=== PATIENT | male | born 1965 | race Caucasian/White ===

== ENCOUNTER 2023-01-26 06:56 | Inpatient (IN) | payer MEDICARE, OTHER ==
[~2023-01-26] VITALS: Ht 177.8 cm; Wt 86.4 kg
[2023-01-26] MEDS ORDERED: TEMAZEPAM 7.5 MG CAPSULE PO PRN (09:30)
[2023-01-26] MEDS ORDERED: LORAZEPAM 0.5 MG TABLET PO PRN (09:30)
[2023-01-26] MEDS ORDERED: ACETAMINOPHEN 325 MG TABLET PO PRN (09:30)
[2023-01-26] MEDS ORDERED: MAGNESIUM HYDROXIDE 30 ML UDC PO PRN (09:30)
[2023-01-26] MEDS ORDERED: MAG HYDROX/AL HYDROX/SIMETH 30 ML UDC PO PRN (09:30)
[2023-01-26] MEDS ORDERED: BLOOD SUGAR DIAGNOSTIC 1 EACH STRIP IN ONE (09:30)
[2023-01-26] MEDS: clonazePAM 0.5 MG TABLET PO PRN (10:28)
[2023-01-26] MEDS ORDERED: HYDR10SY16 PO (11:03)
[2023-01-26] MEDS ORDERED: RISP1TAB97 PO (11:03)
[2023-01-26 16:00] VITALS: BP 105/66; TEMP 98.4; O2SAT 98
[2023-01-26 21:03] VITALS: BP 118/70; TEMP 98.4; O2SAT 96
[2023-01-26] MEDS: TEMAZEPAM 7.5 MG CAPSULE PO PRN (23:30)
[2023-01-27 08:00] VITALS: BP 107/76; TEMP 98.2; O2SAT 97
[2023-01-27 08:16] LABS: ALBUMIN 3.7 g/dL (3.4-5.0); BILIRUBIN,TOTAL 0.4 mg/dL (0.2-1.0); CALCIUM, SERUM 9.2 mg/dL (8.5-10.1); POTASSIUM 4.1 mmol/L (3.5-5.1); TOTAL PROTEIN, SERUM 7.2 g/dL (6.4-8.2)
[2023-01-27] MEDS: risperiDONE 1 MG TABLET PO SCH ×2 (11:40→17:03)
[2023-01-27 16:00] VITALS: BP 127/76; TEMP 97.7; O2SAT 98
[2023-01-27 19:49] VITALS: BP 108/55; TEMP 98.1; O2SAT 96
[2023-01-28] MEDS: risperiDONE 1 MG TABLET PO SCH ×2 (10:40→16:17)
[2023-01-28 16:00] VITALS: BP 133/79; TEMP 98.1; O2SAT 99
[2023-01-28 20:53] VITALS: BP 114/74; TEMP 98.2; O2SAT 98
[2023-01-28] MEDS: risperiDONE 0.25 MG TABLET PO SCH (21:35)
[2023-01-29] MEDS: TEMAZEPAM 7.5 MG CAPSULE PO PRN (00:22)
[2023-01-29 08:00] VITALS: BP 108/63; TEMP 97.8; O2SAT 96
[2023-01-29] MEDS: risperiDONE 1 MG TABLET PO SCH (08:20)
[2023-01-29 16:00] VITALS: BP 125/72; TEMP 98.1; O2SAT 100
[2023-01-29 20:14] VITALS: BP 120/71; TEMP 98.1; O2SAT 99
[2023-01-29] MEDS: risperiDONE 0.25 MG TABLET PO SCH (21:54)
[2023-01-30 08:00] VITALS: BP 114/69; TEMP 97.8; O2SAT 97
[2023-01-30] MEDS: risperiDONE 1 MG TABLET PO SCH (08:32)
[2023-01-30 16:00] VITALS: BP 102/55; TEMP 98.2; O2SAT 97
[2023-01-30 20:00] VITALS: BP 104/80; TEMP 98.3; O2SAT 98
[2023-01-30] MEDS: risperiDONE 0.25 MG TABLET PO SCH (21:27)
[2023-01-31 08:00] VITALS: BP 129/81; TEMP 98.9; O2SAT 97
[2023-01-31] MEDS: risperiDONE 1 MG TABLET PO SCH (08:23)
[2023-01-31] MEDS: clonazePAM 0.5 MG TABLET PO PRN (10:02)
[2023-01-31 16:00] VITALS: BP 124/71; TEMP 98; O2SAT 100
[2023-01-31 20:00] VITALS: BP 117/80; TEMP 98.3; O2SAT 99
[2023-01-31] MEDS: risperiDONE 0.25 MG TABLET PO SCH (21:25)
[2023-02-01 08:00] VITALS: BP 124/76; TEMP 98.1; O2SAT 99
[2023-02-01] MEDS: clonazePAM 0.5 MG TABLET PO PRN (08:05)
[2023-02-01] MEDS: risperiDONE 1 MG TABLET PO SCH ×4 (08:05→21:23)
[2023-02-01 16:00] VITALS: BP 127/71; TEMP 98; O2SAT 99
[2023-02-01 20:59] VITALS: BP 124/77; TEMP 98; O2SAT 99
[2023-02-02 08:00] VITALS: BP 120/74; TEMP 99.1; O2SAT 98
[2023-02-02] MEDS: clonazePAM 0.5 MG TABLET PO PRN ×2 (08:21→16:02)
[2023-02-02] MEDS: risperiDONE 1 MG TABLET PO SCH ×3 (08:21→21:06)
[2023-02-02 16:00] VITALS: BP 121/75; TEMP 97.9; O2SAT 97
[2023-02-02 20:21] VITALS: BP 110/80; TEMP 97.9; O2SAT 97
[2023-02-03 08:00] VITALS: BP 117/89; TEMP 98.6; O2SAT 100
[2023-02-03] MEDS: risperiDONE 1 MG TABLET PO SCH ×3 (08:27→21:07)
[2023-02-03 16:00] VITALS: BP 115/69; TEMP 98.2; O2SAT 99
[2023-02-03 20:30] VITALS: BP 105/70; TEMP 98.6; O2SAT 99
[2023-02-04 08:00] VITALS: BP 107/69; TEMP 97.8; O2SAT 96
[2023-02-04] MEDS: risperiDONE 1 MG TABLET PO SCH ×3 (08:14→21:32)
[2023-02-04 16:00] VITALS: BP 118/77; TEMP 98.7; O2SAT 98
[2023-02-04 20:31] VITALS: BP 109/70; TEMP 98.1; O2SAT 100
[2023-02-04] MEDS: TEMAZEPAM 7.5 MG CAPSULE PO PRN (22:49)
[2023-02-05 08:00] VITALS: BP 113/73; TEMP 98.7; O2SAT 98
[2023-02-05] MEDS: risperiDONE 1 MG TABLET PO SCH ×3 (08:17→21:16)
[2023-02-05] MEDS: clonazePAM 0.5 MG TABLET PO PRN ×2 (08:17→16:06)
[2023-02-05 16:00] VITALS: BP 134/88; TEMP 98; O2SAT 100
[2023-02-05 20:08] VITALS: BP 115/71; TEMP 98.4; O2SAT 98
[2023-02-05] MEDS: ATORVASTATIN 10 MG TABLET PO SCH (21:16)
[2023-02-06 08:00] VITALS: BP 126/80; TEMP 99; O2SAT 98
[2023-02-06] MEDS: risperiDONE 1 MG TABLET PO SCH ×3 (08:06→21:14)
[2023-02-06 16:00] VITALS: BP 115/70; TEMP 98.2; O2SAT 99
[2023-02-06] MEDS: ATORVASTATIN 10 MG TABLET PO SCH (21:13)
[2023-02-06] MEDS: TEMAZEPAM 7.5 MG CAPSULE PO PRN (23:11)
[2023-02-07 08:00] VITALS: BP 112/67; TEMP 98.1; O2SAT 94
[2023-02-07] MEDS: risperiDONE 1 MG TABLET PO SCH (08:08)
== END 2023-02-07 11:30 | disposition home or self-care (01) | DRG 885 ==
LOC: GPS 09:03
PROVIDERS: ADMIT Psychiatry & Neurology Psychiatry; ATTEND Nurse Practitioner Acute Care
DX: F20.9 Schizophrenia, unspecified (principal); F29 Unspecified psychosis not due to a substance or known physiological condition; E78.5 Hyperlipidemia, unspecified; F17.210 Nicotine dependence, cigarettes, uncomplicated; F20.0 Paranoid schizophrenia; R73.03 Prediabetes; Z79.899 Other long term (current) drug therapy; Z20.822 Contact with and (suspected) exposure to COVID-19; Z71.6 Tobacco abuse counseling; F10.10 Alcohol abuse, uncomplicated; F39 Unspecified mood [affective] disorder
CPT/HCPCS: 36415; 80053-TC; 80061-TC